=== PATIENT | female | born 2005 | race Hispanic/Latino ===

== ENCOUNTER 2023-05-07 21:13 | Emergency (ER) | payer OTHER ==
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
[2023-05-07] MEDS ORDERED: IBUPROFEN 400 MG TAB ONE (22:33)
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
[2023-05-08 00:34] VITALS: TEMP 98.3
[2023-05-08 00:41] VITALS: BP 142/75; O2SAT 99
== END 2023-05-07 23:30 | disposition home or self-care (01) ==
LOC: ER 21:13
DX: S16.1XXA Strain of muscle, fascia and tendon at neck level, initial encounter (principal); V59.50XA Passenger in pick-up truck or van injured in collision with unspecified motor vehicles in traffic accident, initial encounter
CPT/HCPCS: 70450; 72125; 99284